=== PATIENT | female | born 1950 | race Caucasian/White ===

== ENCOUNTER 2019-04-30 07:44 | Emergency (ER) | payer MEDICARE, BC ==
--- NOTE | 2019-04-30 07:53 | EDM.PDOC ---
ED HPI GENERAL MEDICAL PROBLEM - General Chief Complaint: Abdominal Pain Stated Complaint: LOWER LEFT ABDOMINAL PAIN Time Seen by Provider: 04/30/19 07:53 Source of Information: Reports: Patient - History of Present Illness INITIAL COMMENTS - FREE TEXT/NARRATIVE: HISTORY AND PHYSICAL: History of present illness: [Patient presents with 5 out of 10 in radiating to the left inner thigh began on increasing in severity no fever mild nausea no vomiting chills sweats Review of systems: As per history of present illness and below otherwise all systems reviewed and negative. Past medical history: As per history of present illness and as reviewed below otherwise noncontributory. Surgical history: As per history of present illness and as reviewed below otherwise noncontributory. Social history: No reported history of drug or alcohol abuse. Family history: As per history of present illness and as reviewed below otherwise noncontributory. Physical exam: HEENT: Atraumatic, normocephalic, pupils reactive, negative for conjunctival pallor or scleral icterus, mucous membranes moist, throat clear, neck supple, nontender, trachea midline. Lungs: Clear to auscultation, breath sounds equal bilaterally, chest nontender. Heart: S1S2, regular, negative for clicks, rubs, or JVD. Abdomen: Soft, nondistended, nontender. Negative for masses or hepatosplenomegaly. Negative for costovertebral tenderness. Pelvis: Stable nontender. Genitourinary: Deferred. Rectal: Deferred. Extremities: Atraumatic, negative for cords or calf pain. Neurovascular unremarkable. Neuro: Awake, alert, oriented. Cranial nerves II through XII unremarkable. Cerebellum unremarkable. Motor and sensory unremarkable throughout. Exam nonfocal. Diagnostics: [CBC CMP UA lipase troponin HEENT abdomen pelvis no contrast ] Therapeutics: [Normal saline Toradol Zofran Solu-Medrol Flomax ]Patient discussed with Dr. Cordero he'll see her in the clinic on Thursday Flomax Toradol [facility] [place] Zofran Follow-up on Thursday Filter equipment for collection of stone Impression: [ 6 mm left ureteral stone] Definitive disposition and diagnosis as appropriate pending reevaluation and review of above. Left lower abdominal Pain Score (Numeric/FACES): 8 - Related Data Allergies Allergy/AdvReac Type Severity Reaction Status Date / Time sulfamethoxazole Allergy Hives Verified 04/30/19 07:55 [From Bactrim] trimethoprim [From Bactrim] Allergy Hives Verified 04/30/19 07:55 Home Meds: Home Meds Aspirin 81 mg PO DAILY 04/30/19 [History] Simvastatin 10 mg PO DAILY 04/30/19 [History] ED ROS GENERAL - Review of Systems Review Of Systems: See Below ED EXAM, GENERAL - Physical Exam Exam: See Below Course - Vital Signs Last Recorded V/S: Last Vital Signs Temp 96.0 F 04/30/19 08:05 Pulse 104 H 04/30/19 08:05 Resp 17 04/30/19 08:05 BP 152/92 H 04/30/19 08:05 Pulse Ox 96 04/30/19 08:05 - Orders/Labs/Meds Orders: Active Orders 24 hr Category Date Time Status EKG Documentation Completion [RC] STAT Care 04/30/19 07:49 Active Sodium Chloride 0.9% [Normal Saline] 1,000 ml Med 04/30/19 08:00 Active IV STAT Medication Orders Sodium Chloride (Normal Saline) 1,000 mls @ 125 mls/hr IV STAT ALEJA Last Admin: 04/30/19 08:03 Dose: 125 mls/hr Labs: Laboratory Tests 04/30/19 04/30/19 04/30/19 Range/Units 08:00 08:00 08:10 WBC 11.13 H (4.0-11.0) K/uL RBC 5.06 (4.30-5.90) M/uL Hgb 15.0 (12.0-16.0) g/dL Hct 45.6 (36.0-46.0) % MCV 90.1 (80.0-98.0) fL MCH 29.6 (27.0-32.0) pg MCHC 32.9 (31.0-37.0) g/dL RDW Std Deviation 45.2 (28.0-62.0) fl RDW Coeff of Leo 14 (11.0-15.0) % Plt Count 218 (150-400) K/uL MPV 11.20 (7.40-12.00) fL Neut % (Auto) 87.3 H (48.0-80.0) % Lymph % (Auto) 7.6 L (16.0-40.0) % Real % (Auto) 4.9 (0.0-15.0) % Eos % (Auto) 0.1 (0.0-7.0) % Baso % (Auto) 0.1 (0.0-1.5) % Neut # (Auto) 9.7 H (1.4-5.7) K/uL Lymph # (Auto) 0.9 (0.6-2.4) K/uL Real # (Auto) 0.5 (0.0-0.8) K/uL Eos # (Auto) 0.0 (0.0-0.7) K/uL Baso # (Auto) 0.0 (0.0-0.1) K/uL Nucleated RBC % 0.0 /100WBC Nucleated RBCs # 0 K/uL Sodium 138 (136-145) mmol/L Potassium 4.1 (3.5-5.1) mmol/L Chloride 101 (98-107) mmol/L Carbon Dioxide 27.1 (21.0-32.0) mmol/L BUN 29 H (7.0-18.0) mg/dL Creatinine 1.6 H (0.6-1.0) mg/dL Est Cr Clr Drug Dosing 33.74 mL/min Estimated GFR (MDRD) 32.0 ml/min Glucose 142 H (74-106) mg/dL Calcium 9.8 (8.5-10.1) mg/dL Total Bilirubin 0.8 (0.2-1.0) mg/dL AST 18 (15-37) IU/L ALT 30 (14-63) IU/L Alkaline Phosphatase 82 (46-116) U/L Troponin I < 0.050 (0.000-0.056) ng/mL Total Protein 8.0 (6.4-8.2) g/dL Albumin 4.2 (3.4-5.0) g/dL Globulin 3.8 (2.6-4.0) g/dL Albumin/Globulin Ratio 1.1 (0.9-1.6) Lipase 66 L (73-393) U/L Urine Color YELLOW Urine Appearance SLT CLOUDY Urine pH 5.5 (5.0-8.0) Ur Specific [place] >= 1.030 (1.001-1.035) Urine Protein NEGATIVE (NEGATIVE) mg/dL Urine Glucose (UA) NEGATIVE (NEGATIVE) mg/dL Urine Ketones 15 H (NEGATIVE) mg/dL Urine Occult Blood LARGE H (NEGATIVE) Urine Nitrite NEGATIVE (NEGATIVE) Urine Bilirubin NEGATIVE (NEGATIVE) Urine Urobilinogen 0.2 (<2.0) EU/dL Ur Leukocyte Esterase NEGATIVE (NEGATIVE) Urine RBC 4-7 (0-2/HPF) Urine WBC 1-3 (0-5/HPF) Ur Epithelial Cells FEW (NONE-FEW) Urine Bacteria RARE (NEGATIVE) Urine Mucus LIGHT (NONE-MOD) Meds: Medications Generic Name Dose Route Start Last Admin Trade Name Freq PRN Reason Stop Dose Admin Sodium Chloride 1,000 mls @ 125 mls/hr 04/30/19 08:00 04/30/19 08:03 Normal Saline IV 125 mls/hr STAT ALEJA Administration Discontinued Medications Generic Name Dose Route Start Last Admin Trade Name Freq PRN Reason Stop Dose Admin Ketorolac Tromethamine 30 mg 04/30/19 08:20 04/30/19 08:27 Toradol IVPUSH 04/30/19 08:21 30 mg ONETIME ONE Administration Methylprednisolone Sodium Succinate 125 mg 04/30/19 09:29 Solu-Medrol IVPUSH 04/30/19 09:30 ONETIME ONE Metoclopramide HCl 5 mg 04/30/19 08:22 04/30/19 08:27 Reglan IV 04/30/19 08:23 5 mg ONETIME ONE Administration Ondansetron HCl 8 mg 04/30/19 08:01 04/30/19 08:17 Zofran IVPUSH 04/30/19 08:02 8 mg ONETIME ONE Administration Tamsulosin HCl 0.8 mg 04/30/19 09:29 Flomax PO 04/30/19 09:30 NOW STA Departure - Departure Time of Disposition: 09:45 Disposition: Home, Self-Care 01 Condition: Good Clinical Impression: Ureteral stone - Discharge Information Referrals: Gray Ruiz MD [Primary Care Provider] - Forms: ED Department Discharge Additional Instructions: Medication as prescribed Return if symptoms persist or worsen Filter urine collection equipment for stone ER referral for Dr. Cordero on Thursday [facility]rology [address] [place] [id number] The following information is given to patients seen in the emergency department who are being discharged to home. This information is to outline your options for follow-up care. We provide all patients seen in our emergency department with a follow-up referral. The need for follow-up, as well as the timing and circumstances, are variable depending upon the specifics of your emergency department visit. If you don't have a primary care physician on staff, we will provide you with a referral. We always advise you to contact your personal physician following an emergency department visit to inform them of the circumstance of the visit and for follow-up with them and/or the need for any referrals to a consulting specialist. The emergency department will also refer you to a specialist when appropriate. This referral assures that you have the opportunity for follow-up care with a specialist. All of these measure are taken in an effort to provide you with optimal care, which includes your follow-up. Under all circumstances we always encourage you to contact your private physician who remains a resource for coordinating your care. When calling for follow-up care, please make the office aware that this follow-up is from your recent emergency room visit. If for any reason you are refused follow-up, please contact the [facility] emergency department at and asked to speak to the emergency department charge nurse. - My Orders Last 24 Hours: My Active Orders 04/30/19 07:49 EKG Documentation Completion [RC] STAT 04/30/19 08:00 Sodium Chloride 0.9% [Normal Saline] 1,000 ml IV STAT - Assessment/Plan Last 24 Hours: My Active Orders 04/30/19 07:49 EKG Documentation Completion [RC] STAT 04/30/19 08:00 Sodium Chloride 0.9% [Normal Saline] 1,000 ml IV STAT
[2019-04-30] MEDS ORDERED: Sodium Chloride 0.9% 1,000 ML IV SCH (08:00)
[2019-04-30] MEDS ORDERED: Ondansetron 4 MG/2 ML SDV IVPUSH ONE (08:01)
[2019-04-30] MEDS ORDERED: Ketorolac 30 MG/ML SDV IVPUSH ONE (08:20)
[2019-04-30] MEDS ORDERED: Metoclopramide 10 MG/2 ML SDV IV ONE (08:22)
[2019-04-30 08:27] LABS: CHLORIDE,CL 101 mmol/L (98-107); SODIUM,NA 138 mmol/L (136-145)
--- NOTE | 2019-04-30 09:27 | CT ---
Abdominal pain Technique noncontrast CT abdomen and pelvis coronal sagittal reformat images obtained. COMPARISON : No comparison studies are available. Findings : Heart size is normal. Minimal basilar atelectasis. No significant effusion. No effusion. No pericardial effusion. Spleen, adrenal glands, pancreas appears unremarkable. There are low-density circumscribed lesions in the left hepatic lobe are incompletely assessed but may represent cysts. No biliary dilatation. No abdominal aortic aneurysm. Fat containing umbilical hernia. There is left hydronephrosis hydroureter with perinephric stranding. This is due to a left distal ureteral stone measuring 6 millimeters urinary bladder decompressed and no bladder calculi. Right kidney is unremarkable. Punctate nonobstructing left upper pole calculus. Diverticulosis. Abundant stool in the colon. Appendix not definitively seen. No pericecal inflammatory change. Hysterectomy. No suspicious bony lesions. Impression : 1. Left moderate hydronephrosis and hydroureter due to a left distal ureteral stone measuring 6 millimeters. 2. Diverticulosis. Please note that all CT scans at this facility use dose modulation, iterative reconstruction, and/or weight-based dosing when appropriate to reduce radiation dose to as low as reasonably achievable. Dictated by Rosangela Benoit MD @ Apr 30 2019 9:13AM Signed by Dr. Rosangela Benoit @ Apr 30 2019 9:26AM
[2019-04-30] MEDS ORDERED: methylPREDNISolone Sodium Succinate 125 MG/2 ML SDV IVPUSH ONE (09:29)
[2019-04-30] MEDS ORDERED: Tamsulosin 0.4 MG Cap.ER PO STA (09:29)
== END 2019-04-30 10:19 | disposition home or self-care (01) ==
LOC: MW.ED 07:44
DX: N13.2 Hydronephrosis with renal and ureteral calculous obstruction (principal); Z88.2 Allergy status to sulfonamides; Z88.1 Allergy status to other antibiotic agents; Z79.82 Long term (current) use of aspirin; Z79.899 Other long term (current) drug therapy
CPT/HCPCS: 36415; 74176; 80053; 81001; 83690; 84484; 85025; 93005; 96361; 96374; 96375; 99284; J1885; J2405; J2765; J7040